=== PATIENT | male | born 1940 | race Caucasian/White ===

== ENCOUNTER 2018-09-22 05:30 | Day surgery (SDC) | payer MEDICARE ==
[~2018-09-22] VITALS: Ht 167.6 cm; Wt 96.6 kg
[~2018-09-22 05:30] MED LIST: AEC81 PO; APIX2.5T PO; CLON0.1T PO; ESOM40CA54 PO; GABA-531 PO; INSLAN SQ; RANI150T7 PO; RANO10004 PO; SACU1TAB PO; SIMV20TA6 PO; TAMS-1 PO; [UNRECOGNIZED DRUG - OTHER] PO; victoza SQ
[2018-09-22 05:51] VITALS: BP 169/83
[2018-09-22] MEDS ORDERED: SODIUM CHLORIDE 0.9% 1000ML 1,000 ML IV ONE (06:06)
[2018-09-22] MEDS ORDERED: PROPOFOL 1000 MG/100 ML 100 ML IV ONE (06:45)
[2018-09-22] MEDS ORDERED: LIDOCAINE HCL 1% 20 ML VIAL ONE (06:45)
[2018-09-22] MEDS ORDERED: LIDOCAINE HCL 2% 20ML ONE (06:46)
[2018-09-22 08:00] VITALS: BP 159/93
[2018-09-22 08:05] VITALS: BP 163/91
[2018-09-22 08:10] VITALS: BP_SYST 164; BP_SYST 168; BP_DIAS 85; BP_DIAS 90
[2018-09-22 08:15] VITALS: BP 168/83
== END 2018-09-22 08:25 | disposition home or self-care (01) ==
LOC: DAH 05:30 → ENDO 05:30
PROVIDERS: ATTEND Internal Medicine
DX: K31.89 Other diseases of stomach and duodenum (principal); K21.9 Gastro-esophageal reflux disease without esophagitis; R14.0 Abdominal distension (gaseous); I10 Essential (primary) hypertension; E11.9 Type 2 diabetes mellitus without complications; F15.90 Other stimulant use, unspecified, uncomplicated; F41.9 Anxiety disorder, unspecified; I25.10 Atherosclerotic heart disease of native coronary artery without angina pectoris; F32.9 Major depressive disorder, single episode, unspecified; I25.2 Old myocardial infarction; Z90.49 Acquired absence of other specified parts of digestive tract; Z95.0 Presence of cardiac pacemaker; Z98.49 Cataract extraction status, unspecified eye; Z79.4 Long term (current) use of insulin; Z79.899 Other long term (current) drug therapy; Z98.890 Other specified postprocedural states; Z95.5 Presence of coronary angioplasty implant and graft; Z80.0 Family history of malignant neoplasm of digestive organs
CPT/HCPCS: 43235; 82948; 93005; J2704; J3490; J7030

== ENCOUNTER 2018-10-13 05:50 | Day surgery (SDC) | payer MEDICARE ==
[~2018-10-13] VITALS: Ht 180.3 cm; Wt 96.6 kg
[2018-10-13] VITALS (7 sets, daily range): BP systolic 128–160; BP diastolic 57–91
[~2018-10-13 05:50] MED LIST changes: +SODIUM CHLORIDE 0.9% 1000ML 1,000 ML IV ONE
[2018-10-13 06:25] LABS: BASOPHILS % (AUTO) 0.4 % (0.0-5.0); HEMATOCRIT 40.8 % (42-54); LYMPHOCYTES % (AUTO) 16.3 % (21.0-51.0); MEAN CORPUSCULAR HEMOGLOBIN 33.3 pg (27.0-33.0); MEAN CORPUSCULAR HGB CONC 34.2 g/dL (32.0-36.0); MEAN CORPUSCULAR VOLUME 97.4 fL (79-99); NEUTROPHILS % (AUTO) 75.3 % (40.0-77.0); NUCLEATED RED BLOOD CELLS 0.1 % (0.0-0.19); PLATELET COUNT (AUTO) 173 K/uL (130-400); RED BLOOD CELL COUNT(AUTO) 4.19 MIL/uL (4.50-6.20); WHITE BLOOD COUNT (AUTO) 5.6 K/uL (4.8-10.8)
[2018-10-13] MEDS ORDERED: GLYCOPYRROLATE 0.2 MG/ML 5 ML VIAL ONE (06:32)
[2018-10-13] MEDS ORDERED: PROPOFOL 10 MG/ML 20ML VIAL IV ONE (06:32)
[2018-10-13] MEDS ORDERED: LIDOCAINE HCL-MPF 2% 5ML VIAL ONE (06:32)
[2018-10-13 06:42] LABS: INR 1.13 (0.85-1.15); PROTHROMBIN TIME 11.8 SEC (9.6-11.6)
== END 2018-10-13 07:24 | disposition home or self-care (01) ==
LOC: DAH 05:50 → ENDO 05:50
PROVIDERS: ATTEND Internal Medicine
DX: K31.89 Other diseases of stomach and duodenum (principal); R93.3 Abnormal findings on diagnostic imaging of other parts of digestive tract; K29.70 Gastritis, unspecified, without bleeding; K21.9 Gastro-esophageal reflux disease without esophagitis; K59.04 Chronic idiopathic constipation; I10 Essential (primary) hypertension; I25.10 Atherosclerotic heart disease of native coronary artery without angina pectoris; I25.2 Old myocardial infarction; F41.9 Anxiety disorder, unspecified; E11.9 Type 2 diabetes mellitus without complications; Z79.01 Long term (current) use of anticoagulants; Z95.0 Presence of cardiac pacemaker; Z79.899 Other long term (current) drug therapy; Z79.4 Long term (current) use of insulin; Z90.49 Acquired absence of other specified parts of digestive tract; Z98.890 Other specified postprocedural states; Z80.0 Family history of malignant neoplasm of digestive organs
CPT/HCPCS: 36415; 43237; 82948 ×2; 85025; 85610; J2704; J3490 ×2; J7030